=== PATIENT | male | born 1975 | race Caucasian/White ===

== ENCOUNTER 2017-01-15 05:29 | Emergency (ER) | payer OTHER ==
[~2017-01-15] VITALS: Ht 175.3 cm; Wt 96.6 kg
[2017-01-15] MEDS ORDERED: IV NORMAL SALINE 1,000ML 1,000 ML ONE (05:42)
[2017-01-15] MEDS ORDERED: ONDANSETRON PF 4 MG/2 ML VIAL. ONE (05:42)
--- NOTE | 2017-01-15 05:58 | PHYS DOC ---
General Stated Complaint: N/V Time Seen by MD: 05:44 Source: patient Problems: History of Present Illness Initial Comments Patient here for vomiting. Patient says that yesterday began have a describes as acid sensation in the epigastric area. Since that time, he says he started up about 30 times. He says towards the end the evening and 20 began to see some brown material and when he would have throat, he says that just prior to arrival in the ER when he threw up was pure blood. There is maybe a spoonful or so. He also says he feels like something stuck in his throat that he needs to hack and get out. He says he never had discomfort like this before never had vomiting like this before as well. He's had no fever or chills. There is no runny nose. He says he has some sore throat for the vomiting. He has no chest pain or shortness of breath. He continues to have the acid discomfort in the epigastric area. There is no other abdominal pain. There is no change amount or bladder habits he denies any acute focal extremity or neurologic complaints. Patient's done nothing for this home and notes no factors that increase or decrease any symptoms he might have. Patient says his been unable tolerate any by mouth fluids since the onset of vomiting yesterday. Patient's past medical history is otherwise unremarkable. He is a nonsmoker and an occasional user of ethanol. His last alcohol was last week. He is not a significant user NSAID medication. He does drink 3-4 sodas daily. He does not drink much coffee or tea and is not using energy drinks. Past Medical History Medical History: no pertinent history Social History Smoker: non-smoker Alcohol: occasionally Review of Systems All Other Systems: Reviewed and Negative Physical Exam General Appearance: WD/WN Ear, Nose, Throat: normal ENT inspection, normal pharynx Neck: full range of motion, supple, normal inspection Respiratory: lungs clear, normal breath sounds, no respiratory distress Cardiovascular: regular rate, rhythm, no edema Gastrointestinal: soft, no organomegaly, tenderness Back: no CVA tenderness, no vertebral tenderness Extremities: non-tender, normal inspection, no pedal edema Neurologic/Psychiatric: no motor/sensory deficits, alert, normal mood/affect, oriented x 3 Skin: normal color Lymphatic: no adenopathy Comments Generally this a well-developed well-nourished white male who does look mildly uncomfortable with active retching. Vitals are as noted. Watching him, one almost gets the sense that he is less vomiting, and more gagging and retching, bringing up just a small amount of saliva each time. There is no gross blood noted. Pertinent findings on physical exam shows ears and throat were grossly clear. Neck is supple without adenopathy or JVD. There's no meningeal signs. Chest is clear to auscultation bilaterally. Cardiac vascular exam shows regular rate and rhythm without murmur. The abdomen shows an and mildly tender in the epigastric region. There is no masses, organomegaly, or perineal findings. Back shows no CVA tenderness. Externally show no rashes, cyanosis, or edema. Neurologic exam shows an be awake alert oriented and cooperative. Remainder of physical exam is clinically unremarkable. Orders, Labs, Meds Old charts note no prior ER visits within the current system. At this time, I'll go ahead and order initial labs, x-rays, and antiemetics and fluids. Patient really seems to be less vomiting and gagging and retching, and one almost gets the sense this might be more related to reflux. However, as I'm speaking with the patient regarding the changes shift, he did have vomitus of significant amount of brown material without distinct coffee grounds. Hemoccult card was sent to lab for evaluation. I'll go ahead and give him some Pepcid and Protonix as well as a trial of fluids and antiemetic. At this point, I think he may well require admission for evaluation and further care, including possible endoscopy to look for any sign of bleeding if his Hemoccult was positive.Certainly if he exhibits any hematemesis here in the ED he would require admission, or if his nausea and vomiting remains intractable. Patient is to be checked out to the oncoming emergency physician with this plan in mind. I did discuss the upcoming changes shift with the patient voices understanding. DONNA MUÑOZ MD Jan 15, 2017 05:58
[2017-01-15] MEDS: LORAZEPAM 2 MG/ML VIAL IV ONE ×2 (06:10→06:30)
[2017-01-15 06:15] LABS: BASO % 0 % (0-3); EOS % 0 % (0-3); HEMATOCRIT 47.1 % (39.0-53.0); HEMOGLOBIN 16.4 g/dL (13.0-17.5); LYMPH # 1.2 x10^3/uL (1.0-4.8); LYMPH % 7 % (24-48); MEAN CORPUSCULAR HEMOGLOBIN 31 pg (25-35); MEAN CORPUSCULAR HGB CONC 35 g/dL (31-37); MEAN CORPUSCULAR VOLUME 89 fL (79-100); MONO # 1.2 x10^3/uL (0.0-1.1); MONO % 7 % (0-9); NEUT # 14.8 x10^3uL (1.8-7.7); NEUT % 86 % (31-73); PLATELET COUNT 260 x10^3/uL (140-400); RED BLOOD COUNT 5.26 x10^6/uL (4.30-5.70); RED CELL DISTRIBUTION WIDTH 13.3 % (11.5-14.5); WHITE BLOOD COUNT 17.3 x10^3/uL (4.0-11.0)
[2017-01-15] MEDS ORDERED: ONDANSETRON PF 4 MG/2 ML VIAL. IV ONE ×2 (06:15→06:30)
[2017-01-15] MEDS ORDERED: IV NORMAL SALINE 1,000ML 1,000 ML IV ONE ×2 (06:15→06:30)
[2017-01-15 06:21] LABS: ALBUMIN/GLOBULIN RATIO 1.3 (1.0-1.7); CALCIUM 10.2 mg/dL (8.5-10.1); CREATININE 1.8 mg/dL (0.7-1.3); GFR 41.6; POTASSIUM 3.3 mmol/L (3.5-5.1); TOTAL BILIRUBIN 1.6 mg/dL (0.2-1.0)
[2017-01-15] MEDS ORDERED: PANTOPRAZOLE SODIUM IV 80 MG in IV NORMAL SALINE 100ML 100 ML IV ONE (06:30)
[2017-01-15] MEDS ORDERED: FAMOTIDINE 20 MG/2 ML VIAL IVP ONE (06:30)
[2017-01-15] MEDS ORDERED: FENTANYL PF 100 MCG/2 ML VIAL. IV ONE (06:30)
[2017-01-15 06:44] LABS: GASTRIC OB PAT POSITIVE (NEG)
--- NOTE | 2017-01-15 07:12 | RAD ---
Abdomen, 2 views, 01/15/2017: History: Nausea and vomiting The abdominal gas pattern is unremarkable without evidence of obstruction. No free air seen in the abdomen. There is no evidence of organomegaly. Lower pelvic calcifications are probably phleboliths. IMPRESSION: No acute abdominal abnormality is detected.
[2017-01-15 07:45] VITALS: BP 122/104
[2017-01-15 08:03] LABS: AMPHETAMINE/METHAMPHETAMINE NEG (NEG); BARBITURATES NEG (NEG); BENZODIAZEPINES NEG (NEG); CANNABINOIDS NEG (NEG); COCAINE NEG (NEG); METHADONE NEG (NEG); OPIATES NEG (NEG); PHENCYCLIDINE NEG (NEG)
[2017-01-15 08:18] LABS: BILIRUBIN,URINE MOD (NEG); CLARITY,URINE HAZY; COLOR,URINE AMBER; GLUCOSE,URINE NEG (NEG); NITRITE,URINE NEG (NEG); UROBILINOGEN,URINE 1 mg/dL (0.2 mg/dL)
[2017-01-15 08:19] LABS: AMORPHOUS SEDIMENT,UR PRESENT /HPF; BACTERIA,URINE 0 /HPF (0-FEW); GRANULAR CASTS,URINE FEW /HPF; HYALINE CASTS, URINE FEW /HPF; SQUAMOUS EPITHELIAL CELL,UR FEW /LPF; WBC,URINE 0 /HPF (0-4)
[2017-01-15 08:30] LABS: % LYMPHS 15 % (24-48); % MONOS 8 % (0-10); % SEGS 77 % (35-66); PLATELET CLUMP PRESENT; PLT ESTIMATE ADEQUATE (ADEQUATE)
[2017-01-15 08:33] LABS: SMUDGE CELLS PRESENT
== END 2017-01-15 07:45 | disposition short-term general hospital (02) ==
LOC: ER 05:35
DX: K92.2 Gastrointestinal hemorrhage, unspecified (principal); R11.10 Vomiting, unspecified; J02.9 Acute pharyngitis, unspecified
CPT/HCPCS: 36415; 74020; 80053; 80305; 80320; 81001; 82010; 82150; 82271; 83690; 85007; 85027; 85610; 86850; 86900; 86901; 96361; 96374; 96375; 99285; J2405; J3010; S0028; G0480; G0481; J2060; J7030

== ENCOUNTER → 2017-02-20 | Outpatient (CLI) | payer OTHER ==
[~2017-02-20] VITALS: Ht 175.3 cm; Wt 95.3 kg
[~2017-02-20] MED LIST: DULO20CA50 PO; ESZO3TAB28 PO; PANT20TA58 PO; SINCALIDE 2 MCG in IV NORMAL SALINE 50ML 30 ML IV ONE
--- NOTE | 2017-02-20 10:26 | RAD ---
Radionuclide hepatobiliary scan with gallbladder ejection fraction, 02/20/2017: History: Abdominal pain Following IV injection of 5.5 mCi of technetium 99m Choletec there was prompt uptake of the radionuclide from the blood stream by the liver. Activity is present in the bile ducts and small bowel at 10 minutes. Gallbladder activity develops at 20 minutes. Bile reflux into the stomach was noted. Additional imaging of the gallbladder was then performed following IV injection of 2.0 mcg of cholecystokinin. The gallbladder ejection fraction was occluded at 52%. IMPRESSION: 1. No evidence of cystic duct or common bile duct obstruction. 2. Bile reflux into the stomach. 3. The gallbladder ejection fraction is 52%.
== END | disposition home or self-care (01) ==
LOC: NM 07:12
PROVIDERS: ATTEND Internal Medicine Gastroenterology
DX: K21.9 Gastro-esophageal reflux disease without esophagitis (principal); K82.0 Obstruction of gallbladder
CPT/HCPCS: 78226; 96374; 96375; A9537; J2805

== ENCOUNTER 2017-11-13 20:36 | Emergency (ER) | payer OTHER ==
[~2017-11-13] VITALS: Ht 175.3 cm; Wt 99.1 kg
[~2017-11-13 20:36] MED LIST changes: -SINCALIDE 2 MCG in IV NORMAL SALINE 50ML 30 ML IV ONE
--- NOTE | 2017-11-13 21:36 | PHYS DOC ---
Past History Past Medical History: Alcoholism, Other Past Surgical History: No Surgical History Alcohol Use: Occasionally Drug Use: None Adult General Chief Complaint Chief Complaint: ALCOHOL INTOXICATION HPI HPI 41-year-old male patient with history of alcohol abuse brought in by his friend for alcohol detox. Patient is a and told his who is out of town that he had couple episodes of black vomiting 3 days ago without melena or dizziness or chest pain and shortness of breath. Patient had history of previous esophageal bleeding and his asked his friend to take care of him. Patient denies suicidal or homicidal ideation and hallucination and states he had fifth of vodka today like his usual. Patient did not want inpatient treatment for alcohol detox at arrival to ER but later on stated if he goes home he is going to continue drinking alcohol. Review of Systems Review of Systems Constitutional: Denies fever or chills [] Eyes: Denies change in visual acuity, redness, or eye pain [] HENT: Denies nasal congestion or sore throat [] Respiratory: Denies cough or shortness of breath [] Cardiovascular: No additional information not addressed in HPI [] GI: Denies abdominal pain, nausea, vomiting, bloody stools or diarrhea [] : Denies dysuria or hematuria [] Musculoskeletal: Denies back pain or joint pain [] Integument: Denies rash or skin lesions [] Neurologic: Denies headache, focal weakness or sensory changes [] Endocrine: Denies polyuria or polydipsia [] All other systems were reviewed and found to be within normal limits, except as documented in this note. Allergies Allergies Allergies Coded Allergies Type Severity Reaction Last Updated Verified Penicillins Allergy Unknown 01/15/17 Yes Physical Exam Physical Exam Constitutional: Well developed, well nourished, mild distress, non-toxic appearance, alcohol on breath. [] HENT: Normocephalic, atraumatic, bilateral external ears normal, oropharynx moist, no oral exudates, nose normal. [] Eyes: PERRLA, EOMI, conjunctiva normal, no discharge. [] Neck: Normal range of motion, no tenderness, supple, no stridor. [] Cardiovascular: Tachycardia, no murmur [] Lungs & Thorax: Bilateral breath sounds clear to auscultation [] Abdomen: Bowel sounds normal, soft, no tenderness, no masses, no pulsatile masses. [] Skin: Warm, dry, no erythema, no rash. [] Back: No tenderness, no CVA tenderness. [] Extremities: No tenderness, no cyanosis, no clubbing, ROM intact, no edema. [] Neurologic: Alert and oriented X 3, normal motor function, normal sensory function, no focal deficits noted. [] Psychologic: Affect normal, judgement normal, mood normal. [] EKG EKG [] Radiology/Procedures Radiology/Procedures [] Course & Med Decision Making Course & Med Decision Making Evaluation of patient in ER showed 41-year-old male patient brought in to ER for alcohol detox. Patient was eating Ma[place] food at the same time that giving history and denied suicidal and homicidal ideation and hallucination. Patient denied chest pain and shortness of breath. Patient was intoxicated or having sign of GI bleeding. Patient stated he had a couple episodes of black vomiting 3 days ago without melena. Patient informed that he cannot have detox in this hospital and he did not want to have blood test here and wanted to go to places that offers him detox. Resources for detox was provided and patient discharged from ER with his friend and his friend's . I've spoken with the patient and/or caregivers. I've explained the patient's condition, diagnosis and treatment plan based on information available to me at this time. I've answered the patient's and/or caregivers questions and addressed any concerns. The patient and/or caregivers have a good understanding the patient's diagnosis, condition and treatment plan as can be expected at this point. Vital signs have been stabilized. The patient's condition is stable for discharge from the emergency department. The patient will pursue further outpatient evaluation with her primary care provider or other designated consulting physician as outlined in the discharge instructions. Patient and/or caregivers are agreeable to this plan of care and follow-up instructions have been explained in detail. The patient and/or caregivers have received these instructions in written format and expressed understanding of these discharge instructions. The patient and her caregivers are aware that if any significant change in condition or worsening of symptoms should prompt him to immediately return to this of the closest emergency department. If an emergent department is not readily available I would encourage him to call 911. Erin Disclaimer Dragon Disclaimer This electronic medical record was generated, in whole or in part, using a voice recognition dictation system. Departure Departure: Impression: Primary Impression: Alcohol use Disposition: HOME, SELF-CARE (At 2135) Condition: STABLE Referrals: RICHARD LUTZ DO (PCP) Patient Instructions: Alcohol Problems Additional Instructions: Follow-up with provided resources for alcohol detox ESEQUIEL TRAN MD Nov 13, 2017 21:36
[2017-11-13 21:45] VITALS: BP 158/98
== END 2017-11-13 21:51 | disposition home or self-care (01) ==
LOC: ER 20:36
DX: F10.20 Alcohol dependence, uncomplicated (principal); Z88.0 Allergy status to penicillin
CPT/HCPCS: 99281